=== PATIENT | male | born 1985 | race Caucasian/White ===

== ENCOUNTER → 2017-05-30 | Outpatient (CLI) | payer OTHER ==
[~2017-05-30] MED LIST: CITA-73 PO
== END | disposition home or self-care (01) ==
LOC: LAB 08:55
PROVIDERS: ATTEND Internal Medicine Gastroenterology
DX: K92.1 Melena (principal); R19.7 Diarrhea, unspecified
CPT/HCPCS: 87045; 87493; 87899

== ENCOUNTER 2017-06-03 08:04 | Day surgery (SDC) | payer OTHER ==
[2017-05-30 10:32] LABS: Basophils # (auto) 0.1 uL; Basophils % (auto) 1.1 % (0.0-2.0); Eosinophils # (auto) 0.1 uL; Hematocrit 46.9 % (41.0-53.0); Hemoglobin 16.4 g/dL (13.5-17.5); Lymphocytes # (auto) 2.1 uL; Lymphocytes % (auto) 31.6 % (10.0-50.0); Mean Corpuscular Hemoglobin 30.5 pg (28.0-32.0); Mean Corpuscular Volume 87.2 fL (80.0-100.0); Monocytes # (auto) 0.6 uL; Monocytes % (auto) 8.8 % (0.0-12.0); Neutrophils # (auto) 3.8 uL; Neutrophils % (auto) 56.5 % (37.0-80.0); Platelet Count (auto) 273 10^3/uL (140-450); Red Blood Cells 5.38 10^6/uL (4.5-5.90); Red Cell Distribution Width 13.6 % (11.8-14.3); White Blood Cell 6.7 10^3/uL (4.4-10.8)
[2017-05-30 10:52] LABS: INR 0.94 (0.9-1.15); Prothrombin Time 10.2 sec (9.37-12.3)
[~2017-06-03] VITALS: Ht 170.2 cm; Wt 75.3 kg
[2017-06-03] MEDS ORDERED: LIDOCAINE VISCOUS 2% 15ML UD ONE (08:06)
[2017-06-03] MEDS ORDERED: SODIUM CHLORIDE LOCK 10 ML ONE (08:06)
[2017-06-03] MEDS ORDERED: diphenhdrAMINE HCL 50 MG/1 ML VL ONE (08:06)
[2017-06-03] MEDS: MIDAZOLAM HCL 5 MG/ML-1ML VIAL ONE ×2 (09:06→09:09)
[2017-06-03] MEDS: fentaNYL CITRATE 100 MCG/2 ML VL ONE ×2 (09:06→09:09)
[2017-06-03 10:10] VITALS: BP 114/77
== END 2017-06-03 10:25 | disposition home or self-care (01) ==
LOC: GI 08:04
PROVIDERS: ATTEND Internal Medicine Gastroenterology
DX: K62.1 Rectal polyp (principal); K62.89 Other specified diseases of anus and rectum; K64.8 Other hemorrhoids; Z68.26 Body mass index [BMI] 26.0-26.9, adult; E66.9 Obesity, unspecified; K31.89 Other diseases of stomach and duodenum; J45.909 Unspecified asthma, uncomplicated
CPT/HCPCS: 36415; 43239; 45380; 45385; 85025; 85610; J1200; J2250; J3010; 99152; 99153